=== PATIENT | male | born 1975 | race Caucasian/White ===

== ENCOUNTER 2020-10-31 14:46 | Emergency (ER) | payer MEDICAID, SELFPAY ==
[2020-10-31 15:18] VITALS: BP 131/80; PULSE 79; RESP 18; TEMP 36.1; O2SAT 100; BMI 31.1
--- NOTE | 2020-10-31 17:47 | PC.NURSE ---
PT REFUSED TIHE TETANUS SHOT HE BELIEVES HE HAS HAD SIDE EFFECT IN THE PAST FROM THE VACCINE AND WILL PREFER TO F/U WITH PCP AND SEE WHEN HE LAST HAD THE SHOT.
[2020-10-31] MEDS: Lidocaine HCl 2 % MPF 5 ML VIAL INFILTRATI (17:52)
[2020-10-31 18:00] VITALS: BP 140/74; PULSE 85; RESP 16; TEMP 36.3; O2SAT 98
--- NOTE | 2020-10-31 18:03 | ED.SKABFB ---
HPI - Skin/Abscess/Foreign Bdy General Chief complaint: Skin/Abscess/Foreign Body <PEREZ Gustafson Last Filed: 10/31/20 18:53> Stated complaint: cyst <PEREZ Gustafson Last Filed: 10/31/20 18:53> Time Seen by Provider: 10/31/20 17:23 <PEREZ Gustafson Last Filed: 10/31/20 18:53> Source: patient <PEREZ Gustafson Last Filed: 10/31/20 18:53> Mode of arrival: ambulatory <PEREZ Gustafson Last Filed: 10/31/20 18:53> Limitations: no limitations <PEREZ Gustafson Last Filed: 10/31/20 18:53> History of Present Illness HPI narrative: Patient presents to ED for right posterior midline lump has been painful for the past 3 weeks and red. 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 Patient states he started antibiotics but did not finish it. <PEREZ Gustafson Last Filed: 10/31/20 18:53> Related Data Home medications: Previous Rx's Medication Instructions Recorded cephalexin 500 mg capsule 500 mg PO QID 7 Days #28 cap 10/31/20 diphenhydramine HCl 25 mg capsule 25 mg PO TID PRN #30 cap 10/31/20 (Benadryl) naproxen 500 mg tablet 500 mg PO BID PRN #20 tab 10/31/20 sulfamethoxazole 800 1 tab PO Q12H 7 Days #14 tab 10/31/20 mg-trimethoprim 160 mg tablet (Bactrim DS) <PEREZ Gustafson Last Filed: 10/31/20 18:53> Allergies/Adverse reactions: Allergies Allergy/AdvReac Type Severity Reaction Status Date / Time Penicillins [PCN] Allergy Mild RASH Unverified 12/18/19 17:17 <PEREZ Gustafson Last Filed: 10/31/20 18:53> Review of Systems Review of Systems: Yes all other systems are reviewed and are negative <PEREZ Gustafson Last Filed: 10/31/20 18:53> Constitutional: Constitutional: Reports as per HPI and Reports no additional constitutional complaints <PEREZ Gustafson Last Filed: 10/31/20 18:53> Eyes: Eyes: Reports as per HPI and Reports no additional eye complaints <PEREZ Gustafson Last Filed: 10/31/20 18:53> ENT: Reports system reviewed and no additional complaints, except as documented and Reports as per HPI <PEREZ Gustafson - Last Filed: 10/31/20 18:53> Cardiovascular: Cardiovascular: Reports as per HPI and Reports no additional cardiovascular complaints <PEREZ Gustafson - Last Filed: 10/31/20 18:53> Respiratory: Respiratory: Reports as per HPI and Reports no additional respiratory complaints <PEREZ Gustafson - Last Filed: 10/31/20 18:53> Gastrointestinal: Gastrointestinal: Reports as per HPI and Reports no additional gastrointestinal complaints <PEREZ Gustafson Last Filed: 10/31/20 18:53> Genitourinary: Genitourinary: Reports no additional male genitourinary complaints and Reports as per HPI <PEREZ Gustafson - Last Filed: 10/31/20 18:53> Musculoskeletal: Musculoskeletal: Reports no additional musculoskeletal complaints and Reports as per HPI <PEREZ Gustafson - Last Filed: 10/31/20 18:53> Integumentary/Breasts: Skin/Breast: Reports system reviewed and no additional complaints, except as docu and Reports as per HPI <PEREZ Gustafson - Last Filed: 10/31/20 18:53> Comments: Abscess <PEREZ Gustafson - Last Filed: 10/31/20 18:53> Neurologic: Reports system reviewed and no additional complaints, except as documented and Reports as per HPI <PEREZ Gustafson - Last Filed: 10/31/20 18:53> Psychiatric: Psychiatric: Reports no additional psychiatric complaints and Reports as per HPI <PEREZ Gustafson - Last Filed: 10/31/20 18:53> [facility] Past Medical History Medical History: Medical History (Updated 10/31/20 @ 18:09 by PEREZ Gustafson) Cyst of neck <PEREZ Gustafson - Last Filed: 10/31/20 18:53> Surgical History: Surgical History (Updated 10/31/20 @ 15:21 by Rosa Mayo) H/O neck surgery <PEREZ Gustfason - Last Filed: 10/31/20 18:53> Social History Social History: Social History Advance Directives: No Advance Directives Information Provided: Yes <PEREZ Gustafson - Last Filed: 10/31/20 18:53> Physical Exam Vital Signs: Vital Signs: Last Vital Signs Temp 97.4 F 10/31/20 18:00 Pulse 85 10/31/20 18:00 Resp 16 10/31/20 18:00 BP 140/74 H 10/31/20 18:00 Pulse Ox 98 10/31/20 18:00 Body Mass Index 31.1 <PEREZ Gustafson - Last Filed: 10/31/20 18:53> Vital Signs: Last Vital Signs Temp 97.4 F 10/31/20 18:00 Pulse 85 10/31/20 18:00 Resp 16 10/31/20 18:00 BP 140/74 H 10/31/20 18:00 Pulse Ox 98 10/31/20 18:00 Body Mass Index 31.1 <Javon Liz MD - Last Filed: 10/31/20 19:49> Const: General: cooperative, healthy appearing, comfortable, no acute distress, well developed, alert, awake and Physically active <PEREZ Gustafson - Last Filed: 10/31/20 18:53> Orientation/consciousness: patient oriented x3 <PEREZ Gustafson - Last Filed: 10/31/20 18:53> HENMT: Head: Yes normal to inspection, Yes No palpable skull fracture present, Yes normocephalic and Yes atraumatic <PEREZ Gustafson Last Filed: 10/31/20 18:53> Ears: hearing grossly normal bilaterally and external ears normal <PEREZ Gustafson - Last Filed: 10/31/20 18:53> Eyes: General: appearance normal, both eyes and all related structures <PEREZ Gustafson - Last Filed: 10/31/20 18:53> Neck: Neck: Yes normal visual inspection, Yes full ROM, Yes no lymphadenopathy, Yes no meningeal signs, Yes trachea midline, Yes supple and No tender <PEREZ Gustafson Last Filed: 10/31/20 18:53> Chest: Chest palpation & inspection: normal inspection of the chest and normal palpation of entire chest wall <PEREZ Gustafson Last Filed: 10/31/20 18:53> Resp: Effort & Inspection: normal respiratory effort and able to speak in complete sentences <PEREZ Gustafson Last Filed: 10/31/20 18:53> Auscultation: clear to auscultation bilaterally <PEREZ Gustafson Last Filed: 10/31/20 18:53> Cardio: Jugular venous distension: no JVD <PEREZ Gustafson Last Filed: 10/31/20 18:53> Heart sounds: S1 normal heart sound present and S2 normal heart sound present <PEREZ Gustafson Last Filed: 10/31/20 18:53> GI: Inspection: Yes normal to inspection and No abdominal wall ecchymosis <PEREZ Gustafson Last Filed: 10/31/20 18:53> Palpation (GI): Soft to palpation, not firm, nontender, no guarding and not rigid <PEREZ Gustafson Last Filed: 10/31/20 18:53> : General: No CVA tenderness and Yes no CVA tenderness <PEREZ Gustafson Last Filed: 10/31/20 18:53> Back/Spine/Pelvis: Back: no CVA tenderness, No CVA tenderness and No back tenderness <PEREZ Gustafson Last Filed: 10/31/20 18:53> Back/spine/pelvis image: 1. Fluctulant area of redness with tenderness on palpation. <PEREZ Gustafson Last Filed: 10/31/20 18:53> Skin: Other: Abscesses <PEREZ Gustafson Last Filed: 10/31/20 18:53> Neuro: General: patient oriented x3, gait normal, no meningeal signs and CN's II-XI intact bilaterally <PEREZ Gustafson Last Filed: 10/31/20 18:53> Cranial nerves: Yes CN's II-XII intact bilaterally <PEREZ Gustafson Last Filed: 10/31/20 18:53> Extrem: General: Yes normal to inspection and Yes full ROM <PEREZ Gustafson Last Filed: 10/31/20 18:53> Psych: Appearance: grossly normal, well kempt and not disheveled <PEREZ Gustafson - Last Filed: 10/31/20 18:53> Course Course Course Narrative: Bedside ultrasound shows pus collection. <PEREZ Gustafson - Last Filed: 10/31/20 18:53> Reevaluation(s) Reevaluation #1: 2% lidocaine was used for anesthesia. 5 mL was placed. Wound cleaned with sterile saline Betadine iodine. Size 11 blade used for incision. Yellow pus was squeezed out. Wound culture obtained. Forceps used to open pocket. Normal saline used for irrigation. No need for packing. Superficial incision. Patient refused tetanus vaccination <PEREZ Gustafson - Last Filed: 10/31/20 18:53> Time: 18:08 <PEREZ Gustafson - Last Filed: 10/31/20 18:53> MDM - Skin/Abscess/Foreign Bdy MDM Narrative Medical decision making narrative: Abscess <PEREZ Gustafson Last Filed: 10/31/20 18:53> Discharge Plan Discharge Clinical Impression: Abscess <PEREZ Gustafson Last Filed: 10/31/20 18:53> Patient Disposition: Home, Self-Care <PEREZ Gustafson Last Filed: 10/31/20 18:53> Instructions: Abscess (ED), Abscess Incision and Drainage (DC) <PEREZ Gustafson Last Filed: 10/31/20 18:53> Additional Instructions: Return to the ED for worsening pain, fever, chills, swelling, post perfused pus discharge, or any other concerning symptoms. Return to the ED in 2 days for re-evaluation. <PEREZ Gustafson - Last Filed: 10/31/20 18:53> Prescriptions: New cephalexin 500 mg capsule 500 mg PO QID 7 Days Qty: 28 RF: 0 naproxen 500 mg tablet 500 mg PO BID PRN (Reason: pain) Qty: 20 RF: 0 sulfamethoxazole-trimethoprim [Bactrim DS] 800-160 mg tablet 1 tab PO Q12H 7 Days Qty: 14 RF: 0 diphenhydramine HCl [Benadryl] 25 mg capsule 25 mg PO TID PRN (Reason: sleep) Qty: 30 RF: 0 <PEREZ Gustafson - Last Filed: 10/31/20 18:53> Stand Alone Forms: Work/School Release <PEREZ Gustafson - Last Filed: 10/31/20 18:53> Interventions: ED Discharge Assessment Last Done: 10/31/20 18:43 <PEREZ Gustafson - Last Filed: 10/31/20 18:53> Discharge Date/Time: 10/31/20 18:48 <PEREZ Gustafson - Last Filed: 10/31/20 18:53> Print Language: Latvian <PEREZ Gustafson - Last Filed: 10/31/20 18:53>
--- NOTE | 2020-10-31 18:16 | PC.NURSE ---
DRIED STERILE DRESSING APPLIED TO ABSCESS ON PATIENT RIGHT BACK BY THIS PCT .
== END 2020-10-31 18:48 | disposition home or self-care (01) ==
PROVIDERS: Emergency Provider Internal Medicine
DX: L02.212 Cutaneous abscess of back [any part, except buttock and flank] (principal); M54.5 Low back pain; Z79.899 Other long term (current) drug therapy
CPT/HCPCS: 10060; 87071; 87077; 87186; 87205; 90471; 99284

== ENCOUNTER 2024-01-16 16:34 | Emergency (ER) | payer MEDICAID, SELFPAY ==
--- NOTE | ~2024-01-16 | CT_ITS ---
EXAMINATION: CT HEAD WITHOUT CONTRAST CT CERVICAL SPINE WITHOUT CONTRAST CLINICAL INFORMATION: Trauma. Crowbar fell onto head. COMPARISON: None available. TECHNIQUE: Contiguous axial imaging was performed from the skull base to vertex without intravenous administration of contrast. Contiguous axial imaging was performed from the upper chest through the skull base without intravenous administration of contrast. Coronal and sagittal reformats were obtained at the acquisition workstation. This CT examination was performed using dose optimization techniques as appropriate, variously including the following: *Automated exposure control. *Adjustment of mA and/or kV according to patient size (this includes techniques or standardized protocols for targeted exams where dose is matched to indication/reason for exam; i.e. extremities or head). *Use of iterative reconstruction technique. DLP: 1437 mGy-cm FINDINGS: Head: There is no evidence of acute intracranial hemorrhage or edematous territorial infarction. Greer-white matter differentiation is preserved. There is no abnormal attenuation within the brain parenchyma. The ventricles are normal in morphology and size. No evidence for obstructive hydrocephalus. No abnormal mass effect or midline shift. No extra-axial fluid collections. Small subgaleal hematoma along the right parietal bone, measuring up to 0.3 cm in depth. No associated acute osseous calvarial abnormalities. Mild mucosal thickening of the paranasal sinuses. Moderate rightward nasal septal deviation with spurring. The mastoid air cells and middle ear cavities are clear. Cervical Spine: The atlantooccipital and atlantoaxial articulations remain well aligned. Straightening of the normal cervical lordosis. Otherwise, there is anatomic alignment of the vertebral bodies and posterior elements. No evidence of acute fracture or subluxation. The vertebral body heights are maintained. Mild degenerative disc disease from C2-C6. There is no prevertebral soft tissue swelling. The thyroid gland and remaining cervical soft tissues are within normal limits. The lung apices demonstrate no abnormalities. CT/CT cervical spine wo IV con IMPRESSION: 1. No evidence of acute intracranial hemorrhage or edematous territorial infarction. 2. No evidence of acute fracture or traumatic subluxation of the cervical spine. 3. Small right parietal scalp hematoma. No associated osseous calvarial abnormalities. Electronically signed by: Stevan Byers DO 01/16/2024 08:49 PM EDT
[2024-01-16 16:40] VITALS: BP 161/87; PULSE 116; RESP 19; TEMP 36.6; O2SAT 98; BMI 33.2
--- NOTE | 2024-01-16 16:50 | ED.WOUNDLAC ---
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 Denies LOC. Not on anticoagulation. Reports immediate bleeding from the laceration. Controlled on arrival to ED. reports 04/11 headache at present. States he is unsure of last tetanus vaccine, believes it may have been in 2016. Denies dizziness, vision changes, neck pain. No further complaints in ED. Related Data Previous Rx's ?Medication ?Instructions ?Recorded cephalexin 500 mg capsule 500 mg PO QID 7 days #28 caps 10/31/20 diphenhydramine HCl 25 mg capsule 25 mg PO TID PRN sleep #30 caps 10/31/20 (Benadryl) naproxen 500 mg tablet 500 mg PO BID PRN pain #20 tabs 10/31/20 sulfamethoxazole 800 1 tab PO Q12H 7 days #14 tabs 10/31/20 mg-trimethoprim 160 mg tablet (Bactrim DS) Allergies Allergy/AdvReac Type Severity Reaction Status Date / Time Penicillins [PCN] Allergy Mild RASH Verified 01/16/24 16:41 Review of Systems Review of Systems: Constitutional: No fever, chills, fatigue, night sweats, weight changes ENT/Mouth: No ear pain, hearing loss, nasal congestion, sinus pain, rhinorrhea, sore throat Eyes: No eye pain, swelling, redness, vision changes, discharge Cardio: No chest pain, palpitations, CHRISTINA, orthopnea, peripheral edema Pulm: No SOB, cough, sputum, wheezing, dyspnea, hemoptysis GI: No nausea, vomiting, hematemesis, abdominal pain, diarrhea, constipation, hematochezia, melena : No irregular bleeding, dysuria, frequency, urgency, hesitancy, hematuria, flank pain, urinary flow changes, urinary incontinence or retention MSK: No back pain, neck pain, joint pain, myalgias Skin: No lesions, rashes, +scalp laceration Neuro: No weakness, numbness, paresthesias, LOC, dizziness, headache Psych: No anxiety/panic, depression, SI/HI, AH/VH All other systems reviewed and are negative. [facility] Past Medical History Attestation statement: The following information was validated with the patient. Source: old records reviewed and nursing notes reviewed Medical History Cyst of neck Surgical History H/O neck surgery Social History Social History Advance Directives: No Advance Directives Information Provided: No Do you have a plan to hurt others: No Plan Physical Exam Vital Signs: Vital Signs: Last Vital Signs Temp 97.9 F 01/16/24 21:01 Pulse 90 01/16/24 21:01 Resp 16 01/16/24 21:01 BP 136/79 01/16/24 21:01 Pulse Ox 98 01/16/24 21:01 O2 Del Method Room Air 01/16/24 21:01 BMI result Body Mass Index 33.2 Patient hypertensive to 142/92, vitals otherwise WNL General: Well appearing, in no acute distress. Skin: Warm, dry, intact. No rashes or lesions. Head: Small, 0.5 cm linear laceration noted to right frontal scalp. Bleeding controlled. No palpable hematoma, skull fracture or foreign body. EENT: Hearing is intact b/l. Conjunctiva clear. Sclera is anicteric. PERRLA. EOM intact without entrapment. Moist mucous membranes.? Neck: Supple without LAD. No cervical midline spinous tenderness or step-off deformity. Cardiac: Chest wall symmetric. RRR. Lungs: Normal respiratory effort without accessory muscle use. CTA bilaterally. ? Back: No midline spinous or paraspinal tenderness. No step off deformity. Ext: Upper and lower extremities atraumatic, without tenderness, deformity, swelling or erythema. Full ROM throughout. Neuro: AOx3. Normal speech. Strength 5/5 intact throughout. Sensation intact to light touch. NV intact distally. Ambulating with steady gait. Psych: Appropriate mood and affect. Responds appropriately to questions. Course Course Course Narrative: This is a Rapid Medical Examination (RME) performed by Dougie Crowe PA-C in triage. Full HPI, ROS, assessment and treatment plan per primary provider in the Main ED. 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 no thinners. denies neck pain. last tetanus 2015. + small, 1cm lac noted to right forehead along hair line. Coagulated blood. No active bleeding. Wound dressed in triage. neuro intact. no c spine tenderness or step off. Plan: imaging, lac repair, tdap booster Reevaluation(s) Reevaluation #1: 2100 -- laceration repaired with single staple. patient tolerated well. he is currently declining tetanus booster. i did discuss the risks associated with this and he verbalizes understanding. ct head showing small scalp hematoma, no fracture. no cervical spine fracture on CT. no intracranial bleed. Patient has remained stable throughout ED visit today. Discussed worrisome signs and symptoms and when to return to the ED. All questions answered at this time. Patient is agreeable with disposition and stable for discharge. Medications Administered Discontinued Medications Generic Name Dose Route Start Last Admin Trade Name Freq PRN Reason Stop Dose Admin Diphtheria/Tetanus/Acell Pertussis 0.5 ml 01/16/24 18:49 01/16/24 19:48 Diphth,Pertus(Acell),Tet Adult 0.5 Ml Syringe IM 01/16/24 18:50 Not Given .ONCE ONE Medical Decision Making Medical Decision Making MDM Narrative: 48-year-old male with no significant pmhx presents to the ED today for evaluation of a scalp laceration after a crowbar fell approximately 2 ft onto his head [employer]OURCE [employer]IST. Patient initially hypertensive and tachypneic on arrival. Vitals now wnl. He is nontoxic appearing and in NAD. PERRLA. Exam nonfocal. EOMs intact wihtout entrapment. Small, 0.5 cm linear laceration noted to right frontal scalp. Bleeding controlled. No palpable hematoma, skull fracture or foreign body. ambulating with steady gait. Differential diagnosis includes lacteration, abrasion. Unlikely retained FB, ICH, CVA/TIA, cerebellar stoke, skull fracture, TBI. CT, pain control, laceration repair, tdap booster, re-valuation. Differential Diagnosis Differential Diagnoses: The differential diagnosis associated with the presentation includes as above. Admission/Observation Not indicated. Independent Interpretation I performed an independent interpretation of an: CT Scan Interpretation: CT head/brain without intracranial bleed, agree with radiologist's interpretation. CT cervical spine without fracture/ subluxation, agree with radiologist's interpretation. Radiology Impression Discussion of test interpretation with radiology: I have reviewed the radiologist's reading. External Record Review External record reviewed: Inpatient record Prescription Management I considered prescription management with: Pain Medication (Tylenol, ibuprofen) Social Determinants Patient?s care significantly limited by Social Determinants of Health including: Other Social Determinant of Health Procedures Laceration Laceration 1: Site: scalp Side (If applicable): right Size (cm): 0.5 Description: linear Depth: simple, single layer Pre-repair: wound explored, irrigated extensively and deep structures intact Skin layer closed with: other (rose mary) Number of sutures: 1 Critical Care Time Critical Care Time Critical Care Time: No Discharge Plan Discharge Clinical Impression: Laceration of scalp, Head injury, Hematoma of frontal scalp Patient Disposition: Home, Self-Care Instructions: Head Injury (ED), Staple Care (ED) Additional Instructions: You were evaluated in the ED today following a head injury. You were noted to have a laceration to your right frontal scalp area. The CT scan of your head shows small scalp hematoma which your body will reabsorb over the next few days. No intracranial bleed. Gabrielle CT of your neck is normal. You are declining tetanus vaccination today. You have been evaluated in the Emergency Department today for a laceration to your scalp. Your laceration was repaired in the ED with one staple.? Please keep the area surrounding the laceration clean and dry. Please keep the area out of the sunlight for the next 6 months to help prevent scarring.? If you develop redness or swelling at the site of your laceration please come back to the ER for a wound check. I recommend you take 600mg ibuprofen every 6 hours or tylenol 650mg every 6 hours as needed for pain. If needed, you can alternate these medications so that you take one medication every 3 hours. For example, at noon take ibuprofen, then at 3pm take tylenol, then at 6pm take ibuprofen. Please follow up with your primary care physician in 7-10 days for staple removal. You can also return to the ER or another urgent care facility for this service. Return to the Emergency Department if you experience discharge from your laceration, redness around your laceration, warmth around your laceration, fever, vomiting, numbness, tingling, or any other concerning symptoms. In the case of an emergency call 911. Prescriptions: No Action cephalexin 500 mg capsule 500 mg PO QID 7 Days Qty: 28 0RF naproxen 500 mg tablet 500 mg PO BID PRN (Reason: pain) Qty: 20 0RF sulfamethoxazole-trimethoprim [Bactrim DS] 800-160 mg tablet 1 tab PO Q12H 7 Days Qty: 14 0RF diphenhydramine HCl [Benadryl] 25 mg capsule 25 mg PO TID PRN (Reason: sleep) Qty: 30 0RF Referrals: Eugene Garcia MD [Primary Care Provider] - Interventions: ED Discharge Assessment Last Done: 01/16/24 21:01 Discharge Date/Time: 01/16/24 21:03 Print Language: Armenian
[2024-01-16 19:15] VITALS: BP 142/92; PULSE 107; RESP 18; TEMP 36.4; O2SAT 96
--- NOTE | 2024-01-16 19:48 | PC.NURSE ---
pt refused tetanus shot. PEREZ dailey
[2024-01-16 21:01] VITALS: BP 136/79; PULSE 90; RESP 16; TEMP 36.6; O2SAT 98
== END 2024-01-16 21:03 | disposition home or self-care (01) ==
PROVIDERS: Emergency Provider Emergency Medicine; PCP Family Medicine
DX: S01.01XA Laceration without foreign body of scalp, initial encounter (principal); S09.90XA Unspecified injury of head, initial encounter; S00.03XA Contusion of scalp, initial encounter; W20.8XXA Other cause of strike by thrown, projected or falling object, initial encounter; Y93.9 Activity, unspecified; Y92.9 Unspecified place or not applicable; Y99.9 Unspecified external cause status
CPT/HCPCS: 12001; 70450; 72125; 99284

== ENCOUNTER 2024-01-25 17:00 | Emergency (ER) | payer MEDICAID, SELFPAY ==
[2024-01-25 17:32] VITALS: BP 147/86; PULSE 84; RESP 18; TEMP 36.6; O2SAT 99; BMI 36.0
--- NOTE | 2024-01-25 17:41 | ED_ITS ---
HPI - Wound/Laceration General Chief Complaint: Wound/Laceration Stated Complaint: suture removal Time Seen by Provider: 01/25/24 17:40 Source: patient Mode of arrival: ambulatory Limitations: no limitations History of Present Illness HPI narrative: Patient is a 48-year-old male who presents emergency department for staple removal from the right frontal parietal scalp. Reports 01/16/2024 he was evaluated in this emergency department due to accidental laceration from a crowbar. He reports the 1st couple of days he had a mild headache but this has resolved. He endorses no symptoms at this time. No active bleeding fevers chills or pus-like drainage. Related Data Previous Rx's ?Medication ?Instructions ?Recorded cephalexin 500 mg capsule 500 mg PO QID 7 days #28 caps 10/31/20 diphenhydramine HCl 25 mg capsule 25 mg PO TID PRN sleep #30 caps 10/31/20 (Benadryl) naproxen 500 mg tablet 500 mg PO BID PRN pain #20 tabs 10/31/20 sulfamethoxazole 800 1 tab PO Q12H 7 days #14 tabs 10/31/20 mg-trimethoprim 160 mg tablet (Bactrim DS) Allergies Allergy/AdvReac Type Severity Reaction Status Date / Time Penicillins [PCN] Allergy Mild RASH Verified 01/25/24 17:33 Review of Systems Review of Systems: Yes all other systems are reviewed and are negative [facility] Past Medical History Attestation statement: The following information was validated with the patient. Source: old records reviewed Medical History Cyst of neck Surgical History H/O neck surgery Physical Exam Vital Signs: Vital Signs: Last Vital Signs Temp 97.8 F 01/25/24 17:32 Pulse 84 01/25/24 17:32 Resp 18 01/25/24 17:32 BP 147/86 H 01/25/24 17:32 Pulse Ox 99 01/25/24 17:32 O2 Del Method Room Air 01/25/24 17:32 BMI result Body Mass Index 36.0 Appearance: Alert.?Oriented to person, place and time. No acute distress.?Normal affect. Head: Single staple to the right frontoparietal scalp without surrounding erythema, warmth, or active drainage. Eyes: Pupils equal, round and reactive to light.? Neck: Normal inspection.? Neck supple.?? Neuro: Moves all extremities spontaneously. Sensation intact bilaterally. . No focal neuro deficits. Ambulates with normal steady gait. Medical Decision Making Medical Decision Making MDM Narrative: Patient is a 48-year-old male who presents emergency department for staple removal as per HPI. Well-appearing, nontoxic, afebrile. No signs of localized infection. No focal neurological deficits. Stable for discharge Differential Diagnosis Differential Diagnoses: The differential diagnosis associated with the presentation includes (Staple removal, anticipated wound healing, no cellulitis,) External Record Review External record reviewed: Outpatient record Discharge Plan Discharge Clinical Impression: Laceration of scalp Qualifiers: Encounter type: subsequent encounter Qualified Code(s): S01.01XD - Laceration without foreign body of scalp, subsequent encounter Patient Disposition: Home, Self-Care Prescriptions: No Action cephalexin 500 mg capsule 500 mg PO QID 7 Days Qty: 28 0RF naproxen 500 mg tablet 500 mg PO BID PRN (Reason: pain) Qty: 20 0RF sulfamethoxazole-trimethoprim [Bactrim DS] 800-160 mg tablet 1 tab PO Q12H 7 Days Qty: 14 0RF diphenhydramine HCl [Benadryl] 25 mg capsule 25 mg PO TID PRN (Reason: sleep) Qty: 30 0RF Referrals: Eugene Garcia MD [Primary Care Provider] - Print Language: Romanian
[2024-01-25 17:55] VITALS: BP 147/86; PULSE 84; RESP 18; TEMP 36.6; O2SAT 99
== END 2024-01-25 17:57 | disposition home or self-care (01) ==
PROVIDERS: Emergency Provider Emergency Medicine; PCP Family Medicine
DX: Z48.02 Encounter for removal of sutures (principal); S01.01XD Laceration without foreign body of scalp, subsequent encounter; W22.8XXD Striking against or struck by other objects, subsequent encounter
CPT/HCPCS: 99282